=== PATIENT | female | born 1945 | race African-American/Black ===

== ENCOUNTER 2024-08-08 05:09 | Observation (INO) | payer MEDICARE ==
[2024-08-05 16:22] LABS: BASOPHILS # (AUTO) 0.1 (0.0-0.1); BASOPHILS % 0.7 % (0.0-1.0); EOSINOPHILS # (AUTO) 0.1 (0.0-0.4); EOSINOPHILS % 0.9 % (0.0-6.0); HEMATOCRIT 48.1 % (34.2-44.1); HEMOGLOBIN 15.6 g/dL (12.0-16.0); LYMPHOCYTES # (AUTO) 2.4 (1.0-3.2); LYMPHOCYTES % 30.3 % (18.0-39.1); MEAN CORPUSCULAR HEMOGLOBIN 31.1 pg (28-32); MEAN CORPUSCULAR HGB CONC 32.4 g/dL (31-35); MONOCYTES # (AUTO) 0.6 (0.2-0.8); NEUTROPHILS # (AUTO) 4.8 (2.1-6.9); NEUTROPHILS % 59.7 % (38.7-80.0); PLATELET COUNT 289 x10e3/uL (140-360); RED BLOOD COUNT 5.01 x10e6/uL (3.6-5.1); RED CELL DISTRIBUTION WIDTH 13.5 % (11.7-14.4); WHITE BLOOD COUNT 8.04 x10e3/uL (4.8-10.8)
[2024-08-05 16:37] LABS: BILIRUBIN,URINE NEGATIVE (NEGATIVE); CLARITY,URINE HAZY (CLEAR); COLOR,URINE YELLOW (YELLOW); GLUCOSE, URINE NEGATIVE (NEGATIVE); KETONES,URINE NEGATIVE (NEGATIVE); LEUKOCYTE ESTERASE ,URINE TRACE (NEGATIVE); NITRITE,URINE NEGATIVE (NEGATIVE); PH,URINE 5.5 (5 - 7); PROTEIN,URINE DIPSTICK NEGATIVE (NEGATIVE); URINE UROBILINOGEN 1 mg/dL (0.2 - 1)
[2024-08-05 16:44] LABS: INR 0.95; PARTIAL THROMBOPLASTIN TIME 34.3 seconds (23.8-35.5); PROTHROMBIN TIME 13.6 seconds (11.9-14.5)
[2024-08-05 16:50] LABS: ANION GAP 15.3 mmol/L (8-16); CALCIUM 9.3 mg/dL (8.4-10.2); CREATININE, SERUM 0.94 mg/dL (0.57-1.11); POTASSIUM 4.3 mmol/L (3.5-5.1)
[~2024-08-08] VITALS: Ht 165 cm; Wt 59.0 kg
[~2024-08-08 05:09] MED LIST: ATORVASTATIN CA10 MG PO; BENZONATATE100 MG PO; D3-5000125 MCG; MONTELUKAST SOD10 MG PO; NEURONTIN300 MG PO; VENTOLIN HFA18 GM INH
[2024-08-08] MEDS: CEFAZOLIN SODIUM 2 GM ONE (05:58)
[2024-08-08] MEDS: LACTATED RINGER'S 1,000 ML ONE (05:59)
[2024-08-08] MEDS: Vancomycin IV 1 GM VIAL ONE (05:59)
[2024-08-08] MEDS: SODIUM CHLORIDE 0.9% 250ML 250 ML ONE (06:00)
[2024-08-08] MEDS ORDERED: LIDOCAINE HCL 2% LOCAL INJ 5 ML SDV VIAL INJ ONE (06:35)
[2024-08-08] MEDS ORDERED: PROPOFOL IV EMULSION 10 MG/ML 20 ML VIAL ONE (06:35)
[2024-08-08] MEDS ORDERED: FENTANYL CITRATE/PF 100MCG/2 ML INJ ONE (07:06)
[2024-08-08] MEDS ORDERED: ONDANSETRON HCL INJ 2MG/ML 2ML 2 MG/ML VIAL ONE (07:14)
[2024-08-08] MEDS ORDERED: SEVOFLURANE INHAL SOLN 250 ML PEN BTL ONE (07:14)
[2024-08-08] MEDS ORDERED: DEXAMETHASONE SOD PHOS INJ 4 MG/ML SDV ONE (07:14)
[2024-08-08] MEDS ORDERED: ACETAMINOPHEN 1000 MG/100 ML 100 ML IV ONE (07:14)
[2024-08-08] MEDS ORDERED: ROPIVACAINE/EPI/CLONIDINE/KET 50 ML SYRINGE INJ ONE (08:00)
[2024-08-08] MEDS ORDERED: ALBUTEROL 90 MCG/ACT INHALER INH PRN (13:00)
[2024-08-08] MEDS ORDERED: HYDROCODONE/APAP 10MG-325MG TAB PO PRN (13:00)
[2024-08-08] MEDS ORDERED: TRAMADOL HCL 50 MG TAB PO PRN (13:00)
[2024-08-08] MEDS ORDERED: Morphine 2mg Syringe 2 MG/ML SYR IV PRN (13:00)
[2024-08-08 13:10] VITALS: BP 121/58; PULSE 85; RESP 16; O2SAT 97
[2024-08-08] MEDS ORDERED: ATORVASTATIN 10 MG TAB PO SCH (21:00)
[2024-08-09] MEDS ORDERED: GABAPENTIN 300 MG CAP PO SCH (09:00)
[2024-08-09] MEDS ORDERED: MONTELUKAST SODIUM 10 MG TAB PO SCH (09:00)
[2024-08-09] MEDS ORDERED: BENZONATATE 100 MG CAP PO SCH (09:00)
== END 2024-08-08 14:15 | disposition home health service (06) ==
LOC: OR 05:09 → PACU V 12:52
PROVIDERS: ADMIT Internal Medicine; ATTEND Internal Medicine
DX: M16.11 Unilateral primary osteoarthritis, right hip (principal); E78.5 Hyperlipidemia, unspecified; Z01.810 Encounter for preprocedural cardiovascular examination; Z01.812 Encounter for preprocedural laboratory examination; Z01.818 Encounter for other preprocedural examination
CPT/HCPCS: 27130; 36415; 71046; 72170; 80048; 81003; 85025; 85610; 85730; 86850; 86900; 87086; 93005; 97116; 97161; 97530 ×2; C1713 ×3; C1776 ×3; G0378; J0131; J0690; J1100; J2003; J2405; J2704; J3010; J3370; J7050; J7121